=== PATIENT | male | born 1945 | race Asian ===

== ENCOUNTER 2017-08-13 21:08 | Emergency (ER) | payer OTHER ==
--- NOTE | 2017-08-13 21:19 | EDPHY ---
H & P Stated Complaint: slip and fall while hiking.hit head c/o head pain neck pain and buttocks pa Time Seen by Provider: 08/13/17 21:14 HPI/ROS: HPI CHIEF COMPLAINT: Slip and fall, positive LOC, head strike HISTORY OF PRESENT ILLNESS: Patient is a very pleasant 72-year-old male, history of prostate, current, depression, presents emergency room after was hiking and he slipped and fell coming down a trail. This happened around 630 this evening he had to be extricated off the trail and carried down. He slipped his feet when out in front of him he fell directly backwards with head strike. He had a positive LOC no vomiting. He arrives as a non trauma alert to the emergency room by ambulance completely stable but complaining of a posterior headache, neck pain, right hip pain, bilateral ankle pain he denies any chest pain or shortness of breath. Past Medical History: GERD, Romano's, depression Past Surgical History: No recent surgical history Social History: Denies drugs alcohol tobacco. Family History: Noncontributory ROS REVIEW OF SYSTEMS: A comprehensive 10 point review of systems is otherwise negative aside from elements mentioned in the history of present illness. Exam Constitutional appears well nontoxic GCS 15, triage nursing summary reviewed, vital signs reviewed, awake/alert. Eyes normal conjunctivae and sclera, EOMI, PERRLA. HENT head/neck is in a cervical collar, no signs of trauma on head and neck exam normal inspection, atraumatic, moist mucus membranes, no epistaxis, neck supple/ no meningismus, no raccoon eyes. Respiratory clear to auscultation bilaterally, normal breath sounds, no respiratory distress, no wheezing. Cardiovascular rate normal, regular rhythm, no murmur, no edema, distal pulses normal. Gastrointestinal soft, non-tender, no rebound, no guarding, normal bowel sounds, no distension, no pulsatile mass. Genitourinary no CVA tenderness. Musculoskeletal mild tender palpation over the right lateral hip, no midline vertebral tenderness, full range of motion, no calf swelling, no tenderness of extremities, no meningismus, good pulses, neurovascularly intact. Skin pink, warm, & dry, no rash, skin atraumatic. Neurologic awake, alert and oriented x 3, AAOx3, moves all 4 extremities equally, motor intact, sensory intact, CN II-XII intact, normal cerebellar, normal vision, normal speech. Psychiatric normal mood/affect. Heme/Lymph/Immune no lymphadenopathy. Differential Diagnosis: Includes but is not limited to in a particular order multiple contusions, mechanical trip and fall, closed head injury, intracranial bleed, subdural, traumatic subarachnoid, skull fracture, cervical spine injury, chest wall injury, extremity injury Medical Decision Making: IV establishment blood draw, gentle IV fluids, IV fentanyl for pain control, CT scan head and CT scan neck, chest x-ray pelvis x- ray re-evaluate. Re-evaluation: CT head and CT cervical spine without contrast for trauma called to me by Dr. Mckinney. Negative for acute traumatic injury 2241: Patient ambulated throughout the emergency room however is profoundly dizzy. He is back in his bed. CT angiogram of the chest shows no evidence of PE or pulmonary contusion or pneumothorax. Some bilateral atelectasis otherwise unremarkable. 1231: Patient re-evaluated this time resting comfortably in no acute distress. He ambulated well throughout the emergency room and drank fluids. He is requesting be discharged. He had extensive workup for fall including a normal CT head and neck, normal CT chest. And various x-rays. Blood work is reassuring. He feels comfortable going home. Return precautions discussed with him and his family at bedside they understand return emergency room if he has new symptoms or worsening symptoms chest pain shortness of breath or severe pain. 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, occasional balance issues - Social History Smoking Status: Never smoked Constitutional: Initial Vital Signs Temperature (C) 36.8 C 08/13/17 21:15 Heart Rate 78 08/13/17 21:15 Respiratory Rate 16 08/13/17 21:15 Blood Pressure 113/93 H 08/13/17 21:15 O2 Sat (%) 89 L 08/13/17 21:15 O2 Delivery Mode Nasal Cannula O2 (L/minute) 2 Allergies/Adverse Reactions: carbamazepine [From Tegretol] Allergy (Verified 06/21/13 22:16) Home Medications: Medication Instructions Recorded Gabapentin [Neurontin 300 MG (RX)] 300 mg PO TID 06/22/13 Omeprazole [Prilosec 20 mg] 20 mg PO DAILY 06/22/13 Terazosin HCl [Hytrin 5 MG (RX)] 5 mg PO HS 06/22/13 lamoTRIgine [LamICTAL 100 MG (RX)] 200 mg PO DAILY 06/22/13 Medical Decision Making - Diagnostics Imaging Results: Imaging Impressions Cervical Spine CT 08/13/17 21:24 Impression: Negative noncontrast CT of the head with no intracranial posttraumatic sequela identified. CT Cervical Spine Without Contrast History: Trauma. Technique: Multislice helical CT through the cervical spine without contrast from the skull base to T1. Soft tissue and bone evaluation is performed. Sagittal and coronal reconstructions are obtained and reviewed. Dose reduction techniques were utilized. Findings: There is mild straightening of the normal cervical curvature, otherwise, the bone alignment is normal.. No fracture or dislocation is identified. The relationship between skull base and C1 is normal. The C1-C2 articulation is normal. The odontoid process is normal. Disk spaces maintain their normal height. The cervical thoracic junction is normal. Soft tissue window evaluation does not show evidence of epidural or prevertebral hematoma. Multilevel degenerative changes are noted with disk space loss, bony spurring and facet hypertrophy. Impression: 1. Negative for fracture. Straightening of the cervical curvature suggests possible muscle spasm. 2. Multilevel degenerative changes are noted. Results called and discussed with Slaed Escalante MD on 08/13/2017 at 22:00 Chest X-Ray 08/13/17 21:24 Impression: 1. Chest negative for acute posttraumatic sequela. 2. Shallow inspiration exaggerates lung markings. Head CT 08/13/17 21:24 Impression: Negative noncontrast CT of the head with no intracranial posttraumatic sequela identified. CT Cervical Spine Without Contrast History: Trauma. Technique: Multislice helical CT through the cervical spine without contrast from the skull base to T1. Soft tissue and bone evaluation is performed. Sagittal and coronal reconstructions are obtained and reviewed. Dose reduction techniques were utilized. Findings: There is mild straightening of the normal cervical curvature, otherwise, the bone alignment is normal.. No fracture or dislocation is identified. The relationship between skull base and C1 is normal. The C1-C2 articulation is normal. The odontoid process is normal. Disk spaces maintain their normal height. The cervical thoracic junction is normal. Soft tissue window evaluation does not show evidence of epidural or prevertebral hematoma. Multilevel degenerative changes are noted with disk space loss, bony spurring and facet hypertrophy. Impression: 1. Negative for fracture. Straightening of the cervical curvature suggests possible muscle spasm. 2. Multilevel degenerative changes are noted. Results called and discussed with Slade Escalante MD on 08/13/2017 at 22:00 Pelvis X-Ray 08/13/17 21:24 Impression: Pelvis negative for fracture. Chest/Thorax CTA 08/13/17 23:30 Impression: 1. No evidence of pulmonary embolic disease. 2. See above report for additional findings. Results called and discussed with Slade Escalante MD on 08/14/2017 at 0:00 - Data Points Laboratory Results: Laboratory Results 08/13/17 22:00 08/13/17 22:00 08/13/17 08/13/17 08/13/17 23:18 22:00 22:00 WBC RBC Hgb Hct MCV MCH MCHC RDW Plt Count MPV Neut % (Auto) Lymph % (Auto) [place] % (Auto) Eos % (Auto) Baso % (Auto) Nucleat RBC Rel Count Absolute Neuts (auto) Absolute Lymphs (auto) Absolute Monos (auto) Absolute Eos (auto) Absolute Basos (auto) Absolute Nucleated RBC Immature Gran % Immature Gran # PT 13.7 SEC SEC (12.0-15.0) INR 1.03 (0.83-1.16) APTT 34.5 SEC SEC (23.0-38.0) Sodium 135 mEq/L mEq/L (135-145) Potassium 3.5 mEq/L mEq/L (3.5-5.2) Chloride 108 mEq/L mEq/L (97-110) Carbon Dioxide 19 mEq/l L mEq/l (22-31) Anion Gap 8 mEq/L mEq/L (8-16) BUN 26 mg/dL H mg/dL (7-23) Creatinine 0.9 mg/dL mg/dL (0.7-1.3) Estimated GFR > 60 Glucose 77 mg/dL mg/dL (70-100) Calcium 7.5 mg/dL L mg/dL (8.5-10.4) Urine Color YELLOW Urine Appearance CLEAR Urine pH 5.0 (5.0-7.5) Ur Specific [place] 1.020 (1.002-1.030) Urine Protein NEGATIVE (NEGATIVE) Urine Ketones NEGATIVE (NEGATIVE) Urine Blood NEGATIVE (NEGATIVE) Urine Nitrate NEGATIVE (NEGATIVE) Urine Bilirubin NEGATIVE (NEGATIVE) Urine Urobilinogen NEGATIVE EU EU (0.2-1.0) Ur Leukocyte Esterase NEGATIVE (NEGATIVE) Urine Glucose NEGATIVE (NEGATIVE) 08/13/17 22:00 WBC 5.02 10^3/uL 10^3/uL (3.80-9.50) RBC 4.03 10^6/uL L 10^6/uL (4.40-6.38) Hgb 12.4 g/dL L g/dL (13.7-17.5) Hct 38.2 % L % (40.0-51.0) MCV 94.8 fL fL (81.5-99.8) MCH 30.8 pg pg (27.9-34.1) MCHC 32.5 g/dL g/dL (32.4-36.7) RDW 12.6 % % (11.5-15.2) Plt Count 149 10^3/uL L 10^3/uL (150-400) MPV 10.4 fL fL (8.7-11.7) Neut % (Auto) 82.2 % H % (39.3-74.2) Lymph % (Auto) 10.2 % L % (15.0-45.0) Crawford % (Auto) 5.6 % % (4.5-13.0) Eos % (Auto) 0.8 % % (0.6-7.6) Baso % (Auto) 0.6 % % (0.3-1.7) Nucleat RBC Rel Count 0.0 % % (0.0-0.2) Absolute Neuts (auto) 4.13 10^3/uL 10^3/uL (1.70-6.50) Absolute Lymphs (auto) 0.51 10^3/uL L 10^3/uL (1.00-3.00) Absolute Monos (auto) 0.28 10^3/uL L 10^3/uL (0.30-0.80) Absolute Eos (auto) 0.04 10^3/uL 10^3/uL (0.03-0.40) Absolute Basos (auto) 0.03 10^3/uL 10^3/uL (0.02-0.10) Absolute Nucleated RBC 0.00 10^3/uL 10^3/uL (0-0.01) Immature Gran % 0.6 % % (0.0-1.1) Immature Gran # 0.03 10^3/uL 10^3/uL (0.00-0.10) PT INR APTT Sodium Potassium Chloride Carbon Dioxide Anion Gap BUN Creatinine Estimated GFR Glucose Calcium Urine Color Urine Appearance Urine pH Ur Specific [place] Urine Protein Urine Ketones Urine Blood Urine Nitrate Urine Bilirubin Urine Urobilinogen Ur Leukocyte Esterase Urine Glucose Medications Given: Discontinued Medications Fentanyl (Sublimaze) 50 mcg IVP EDNOW ONE Stop: 08/13/17 21:25 Last Admin: 08/13/17 21:41 Dose: 50 mcg Sodium Chloride (Ns) 1,000 mls @ 0 mls/hr IV ONCE ONE; Wide Open PRN Reason: Protocol Stop: 08/13/17 21:24 Last Admin: 08/13/17 21:41 Dose: 1,000 mls Ondansetron HCl (Zofran) 4 mg IVP EDNOW ONE Stop: 08/13/17 21:25 Last Admin: 08/13/17 21:41 Dose: 4 mg Departure - Departure Disposition: Home, Routine, Self-Care Clinical Impression: Fall Qualifiers: Encounter type: initial encounter Qualified Code(s): W19.XXXA - Unspecified fall, initial encounter Condition: Good Instructions: How to Use an Incentive Spirometer (ED), Fall Prevention (ED) Additional Instructions: 1. Return emergency room if you have any worsening symptoms questions or concerns. 2. I recommend you take anti-inflammatory pain medicine like Tylenol Motrin for pain control 3. Return if worse. Referrals: Patient,NotPresent [Unknown] - As per Instructions
[2017-08-13] MEDS ORDERED: NS 1,000 ML IV ONE (21:23)
[2017-08-13] MEDS ORDERED: fentaNYL 100 MCG/2 ML INJ IVP ONE (21:24)
[2017-08-13] MEDS ORDERED: ONDANSETRON 4 MG/2 ML VIAL IVP ONE (21:24)
[2017-08-13 22:11] LABS: PLATELET COUNT 149 10^3/uL (150-400)
[2017-08-13 22:20] LABS: INR 1.03 (0.83-1.16); PROTIME(PATIENT) 13.7 SEC (12.0-15.0)
[2017-08-13] MEDS ORDERED: IOPAMIDOL (ISOVUE 370) 100 ML BTL IV ONE (23:34)
[2017-08-14 00:38] VITALS: BP 151/84
== END 2017-08-14 00:55 | disposition home or self-care (01) ==
LOC: EDUNIT#
DX: S79.911A Unspecified injury of right hip, initial encounter (principal); E86.9 Volume depletion, unspecified; W01.198A Fall on same level from slipping, tripping and stumbling with subsequent striking against other object, initial encounter; Y92.89 Other specified places as the place of occurrence of the external cause; Y99.8 Other external cause status; Y93.01 Activity, walking, marching and hiking
CPT/HCPCS: 70450; 71045; 71275; 72125; 72170; 96374; 96375; 99285; J2405; J3010; Q9967

== ENCOUNTER → 2017-10-09 | Outpatient (CLI) | payer OTHER | LOC: FIMAGING 15:35 | PROVIDERS: ATTEND Internal Medicine | DX: M25.511 Pain in right shoulder (principal); M79.644 Pain in right finger(s); M89.8X1 Other specified disorders of bone, shoulder ==

== ENCOUNTER → 2017-12-18 | Outpatient (CLI) | payer OTHER ==
--- NOTE | 2017-12-21 11:02 | CPEEG ---
[f rep st] ELECTROENCEPHALOGRAM DATE OF STUDY: 12/18/2017 INTERPRETATION: Normal EEG during wakefulness and sleep. There were no potentially epileptogenic ab normalities present in the recording. REPORT: This EEG contains 10 Hz alpha activity over the posterior head regions. There was no abnorm al activation at rest, during photic stimulation or hyperventilation. The patient became drowsy and fell asleep during the recording. There was no abnormal activation during drowsiness, sleep, or duri ng times of arousal. /[id number]/MODL
== END ==
LOC: FCPNEURO 12:02
PROVIDERS: ATTEND Internal Medicine
DX: R55 Syncope and collapse (principal)